=== PATIENT | male | born 1950 | race Caucasian/White ===

== ENCOUNTER 2019-01-03 16:35 | Emergency (ER) | payer MEDICARE ==
--- OUTSIDE RECORDS SUMMARY | 2019-01-03 17:19 | XMS REPORT | Continuity of Care Document ---
:1950 External Reference #:[id number] Author Name Simón Joe MD (transmitted by agent of provider Yolis Greene) Address [address] [place] [address] Care Team Providers Name Role Phone Simón Joe MD - Gastroenterology Care Team Information Paper Cone Grader [phone] [facility] - Physical Care Team Information Paper [employer]one Grader Therapist Problems Active Problems Provider Date Atrial fibrillation Arun Smith M.D., [facility], [facility] Onset: 06/16/2013 Note: as of 02/28/18 has not felt a fib since 2005; Deep venous thrombosis of lower extremity Simón Joe MD Onset: 2005 Note: Dr Ruelas saw him in 2005 - on warfarin ever since History of adenomatous polyp of colon Simón Joe MD Onset: 02/28/2001 Note: TVA in 2000; transverse TA 2014 Anticoagulant therapy Simón Joe MD Onset: 02/28/2006 Note: notices bruising and some oozing from cuts but cuts are rare; Paroxysmal atrial fibrillation Simón Joe MD Onset: 02/28/2018 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 Note: Dr Denys Urena at [facility]; [phone] / fax [phone] Social History Type Date Description Comments Sex Unknown ETOH Use Currently consumes 3 glasses red wine alcohol daily Tobacco Use Start: Unknown Patient has never smoked Recreational Drug Use Denies Drug Use Tobacco Use Start: Unknown Patient is a former Quit cigarettes in End: Unknown smoker 1982 and quit cigars in 2004 Smoking Status Reviewed: 11/22/18 Patient is a former Quit cigarettes in smoker 1982 and quit cigars in 2004 Exercise Type/Frequency Exercises regularly Tennis 3 times a week Allergies, Adverse Reactions, Alerts Active Allergies Reaction Severity Comments Date Tetracycline swelling Severe 05/26/2013 Medications Active Medications SIG Qnty Indications Ordering Date Provider Atenolol 1 by mouth 90tabs Simón Wei 11/22/2018 25mg Tablets every day MD Heath Lipitor 1 by mouth 90tabs Simón Wei 09/19/2018 10mg Tablets every other MD Heath day Hydrochlorothiazide 1 by mouth 90tabs Simón Wei 03/15/2018 25mg Tablets every day MD Heath Coumadin 5mg by mouth Simón Joe, 06/10/2005 5mg 4 days week, 2.5 mg 3 days per week Klor-Con M20 2 by mouth 60tabs Simón Wei 20Meq Tablets ER every day MD Heath Ramipril 1 by mouth 30caps Mary Lopez, 10mg Capsules every day M.DKen Medications Administered in Office Medication SIG Qnty Indications Ordering Provider Date Technetium TC 99M Arun Noé Smith M.D., 08/09/2015 Tetrofosmin, Per Unit Dose FACC, FASNC Up To 40 Millicuries Injection Immunizations Description No Information Available Vital Signs Date Vital Result Comment 11/22/2018 9:12am Height 71 inches 5'11" Weight 188.00 lb Heart Rate 38 /min BP Systolic 122 mmHg manual, right arm BP Diastolic 70 mmHg manual, right arm O2 % BldC Oximetry 96 % BMI (Body Mass Index) 26.2 kg/m2 02/28/2018 9:52am Height 71 inches 5'11" Weight 192.50 lb Heart Rate 40 /min normal for pt BP Systolic 151 mmHg BP Diastolic 79 mmHg Respiratory Rate 18 /min Body Temperature 97.6 F O2 % BldC Oximetry 97 % BMI (Body Mass Index) 26.8 kg/m2 Results Test Date Facility Test Result H/L Range Note Inr/Protim 11/21/2018 [facility] Inr 5.23 Critical high 0.82- 1.[address] [place] [address] [phone] CBC No 11/21/2018 [facility] White Blood 3.5 10^3/uL Normal 3.5-10.[address] [place] [address] [phone] Red Blood Count 4.01 10^6/uL Low 4.18-5.48 Hemoglobin 14.0 g/dL Normal 14.0-18.0 Hematocrit 41 % Low 42-52 Mean Corpuscular Volume 103 fL High 80-94 Mean Corpuscular Hemoglobin 35 pg High 27-31 Mean Corpuscular HGB Conc 34 g/dL Normal 31-36 Red Cell Distribution Width 14 % Normal 10-15 Platelet Count 203 10^3/uL Normal 150-450 Mean Platelet Volume 8.1 fL Normal 7.4-10.4 Comp Metabolic 11/21/2018 [facility] Sodium 138 mmol/L Normal 135-[address] [place] [address] [phone] Potassium 4.2 mmol/L Normal 3.5-5.0 Chloride 104 mmol/L Normal 101-111 Co2 Carbon Dioxide 29 mmol/L Normal 22-32 Anion Gap 5 mmol/L Normal 2-11 Glucose 138 mg/dL High 70-100 Blood Urea Nitrogen 16 mg/dL Normal 6-24 Creatinine 1.05 mg/dL Normal 0.67-1.17 BUN/Creatinine Ratio 15.2 Normal 8-20 Calcium 9.4 mg/dL Normal 8.6-10.3 Total Protein 6.0 g/dL Low 6.4-8.9 Albumin 3.8 g/dL Normal 3.2-5.2 Globulin 2.2 g/dL Normal 2-4 Albumin/Globulin Ratio 1.7 Normal 1-3 Total Bilirubin 0.50 mg/dL Normal 0.2-1.0 Alkaline Phosphatase 68 U/L Normal 34-104 Alt 17 U/L Normal 7-52 Ast 22 U/L Normal 13-39 Egfr Non- 69.8 >60 Egfr 84.5 >60 2 1 Verbal to by [id number] at 1242 on 11/21/18. Results read back accurately. Standard intensity warfarin therapeutic range: 2.0-3.0 High intensity warfarin therapeutic range: 2.5-3.5 2 Because ethnic data is not always readily available, this report includes an eGFR for both -Americans and non- Americans. The National Kidney Disease Education Program (NKDEP) does not endorse the use of the MDRD equation for patients that are not between the ages of 18 and 70, are , have extremes of body size, muscle mass, or nutritional status, or are non- or non-. According to the National Kidney Foundation, irrespective of diagnosis, the stage of the disease is based on the level of kidney function: Stage Description GFR(mL/min/1.73 m(2)) 1 Kidney damage with normal or decreased GFR 90 2 Kidney damage with mild decrease in GFR 60-89 3 Moderate decrease in GFR 30-59 4 Severe decrease in GFR 15-29 5 Kidney failure <15 (or dialysis) Procedures Date Code Description Status 11/17/2014 92044924 Colonoscopy Completed 11/04/2008 [id number] Colonoscopy Completed 09/24/2003 [id number] Colonoscopy Completed 09/04/2000 [id number] Colonoscopy Completed Medical Devices Description No Information Available Encounters Description No Information Available Assessments Date Code Description Provider 11/22/2018 Z85.53 Personal history of malignant neoplasm of Simón Joe MD renal pelvis 11/22/2018 Z86.010 Personal history of colonic polyps Simón Joe MD 11/22/2018 I48.0 Paroxysmal atrial fibrillation Simón Joe MD 11/22/2018 Z79.01 salvage determiner (current) use of anticoagulants Simón Joe MD Plan of Treatment Future Appointment(s):02/27/2019 9:15 am - Simón Joe MD at [facility] [id number]/23/2019 - Simón Joe MDZ85.53 Personal history of malignant neoplasm of renal pelvisNew Xrays:US Renal Complete, Scheduled: Follow up:In one month INR, glucose, A1c February 092018 - INR, CMP, A1c f/u OV mid VumlzhztE59.010 Personal history of colonic polypsFollow up: In one month INR, glucose, A1c February 092018 - INR, CMP, A1c f/u OV mid PporqjdbM85.0 Paroxysmal atrial fibrillationFollow up:In one month INR, glucose, A1c February 092018 - INR, CMP, A1c f/u OV mid PihkvgifO18.01 long-term (current) use of anticoagulantsFollow up:In one month INR, glucose, A1c February 092018 - INR, CMP, A1c f/u OV january Functional Status Description No Information Available Mental Status Description No Information Available Referrals Description No Information Available
--- NOTE | 2019-01-03 17:29 | ED ---
Lower Extremity - HPI Summary HPI Summary: This pt is a 68 y/o male, with hx of DVT, presenting to [facility] c/o left leg pain. Pt reports he thinks he has a clot in his left leg. He notes he is anticoagulation, Coumadin. Denies fever, chest pain, SOB. He notes his INR level was high during the summer and his doctor lowered his dose. As of December 24, 2018 his INR was 3.69 and his dose was lowered again. PMHx: DVT, afib (not since 2004). - History of Current Complaint Chief Complaint: EDExtremityLower Stated Complaint: MIGHT HAVE A CLOT IN MY LOWER LT LEG PER PT Time Seen by Provider: 01/03/19 17:23 Hx Obtained From: Patient Mechanism Of Injury: Other - no trauma Onset of Pain: Days Onset/Duration: Still Present Severity Currently: Moderate Pain Intensity: 5 Pain Scale Used: 0-10 Numeric Timing: Lasting Days Location: Is Discrete @ - left leg Associated Signs And Symptoms: Positive: Negative Aggravating Factor(s): Nothing Able to Bear Weight: Yes Related History: Other - hx of DVT - Allergies/Home Medications Allergies/Adverse Reactions: Allergies Allergy/AdvReac Type Severity Reaction Status Date / Time MS Tetracyclines Allergy Severe Anaphylatic Verified 02/02/12 18:04 [Tetracyclines] Shock PMH/Surg Hx/FS Hx/Imm Hx Endocrine/Hematology History: Denies: Hx Diabetes, Hx Thyroid Disease Cardiovascular History: Reports: Hx Atrial Fibrillation, Hx Deep Vein Thrombosis , Hx Hypertension Respiratory History: Denies: Hx Asthma, Hx Chronic Obstructive Pulmonary Disease (COPD) GI History: Denies: Hx Ulcer - Cancer History Cancer Type, Location and Year: Kidney Ca, partial nephrectomy 2004 - Surgical History Surgery Procedure, Year, and Place: Partial nephreactomy, 2004; tonsillectomy as a child Infectious Disease History: No Infectious Disease History: Denies: Hx Hepatitis, Hx Human Immunodeficiency Virus (HIV), Traveled Outside the [place] in Last 30 Days - Family History Known Family History: Positive: Hypertension - Social History Alcohol Use: Daily Alcohol Amount: 3-4 glasses of red wine Substance Use Type: Reports: None Review of Systems Negative: Fever, Chills Negative: Chest Pain Negative: Shortness Of Breath Gastrointestinal: Negative Musculoskeletal: Other - POSITIVE: left leg pain All Other Systems Reviewed And Are Negative: Yes Physical Exam - Summary Physical Exam Summary: VITAL SIGNS: Reviewed. GENERAL: Patient is a well-developed and nourished male who is lying comfortable in the stretcher. Patient is not in any acute respiratory distress. HEAD AND FACE: No signs of trauma. No ecchymosis, hematomas or skull depressions. No sinus tenderness. EYES: PERRLA, EOMI x 2, No injected conjunctiva, no nystagmus. EARS: Hearing grossly intact. Ear canals and tympanic membranes are within normal limits. MOUTH: Oropharynx within normal limits. NECK: Supple, trachea is midline, no adenopathy, no JVD, no carotid bruit, no c- spine tenderness, neck with full ROM. CHEST: Symmetric, no tenderness at palpation. LUNGS: Clear to auscultation bilaterally. No wheezing or crackles. CVS: Regular rate and rhythm, S1 and S2 present, no murmurs or gallops appreciated. ABDOMEN: Soft, non-tender. No signs of distention. No rebound, no guarding, and no masses palpated. Bowel sounds are normal. EXTREMITIES: Some tenderness in the left calf. NEURO: Alert and oriented x 3. No acute neurological deficits. Speech is normal and follows commands. SKIN: Dry and warm. Triage Information Reviewed: Yes Vital Signs On Initial Exam: Initial Vitals Temp Pulse Resp BP Pulse Ox 98.3 F 48 17 107/86 96 01/03/19 16:50 01/03/19 16:50 01/03/19 16:50 01/03/19 16:50 01/03/19 16:50 Vital Signs Reviewed: Yes Procedures - Sedation Patient Received Moderate/Deep Sedation with Procedure: No Diagnostics - Vital Signs Vital Signs Temp Pulse Resp BP Pulse Ox 01/03/19 16:50 98.3 F 48 17 107/86 96 - Laboratory Lab Statement: Any lab studies that have been ordered have been reviewed, and results considered in the medical decision making process. - Ultrasound No standard instances Ultrasound Interpretation Completed By: Radiologist Summary of Ultrasound Findings: Left lower extremity US IMPRESSION: No DVT of the left lower extremity. Dr. Jacobson has reviewed this report. Lower Extremity Course/Dx - Course Assessment/Plan: This pt is a 68 y/o male, with hx of DVT, presenting to [facility] c /o left leg pain. Pt reports he thinks he has a clot in his left leg. He notes he is anticoagulation, Coumadin. Denies fever, chest pain, SOB. He notes his INR level was high during the summer and his doctor lowered his dose. As of December 24, 2018 his INR was 3.69 and his dose was lowered again. PMHx: DVT, afib (not since 2004). INR: 2.04. U/S LLE: No DVT. Therefore, the patient will be discharged home with follow-up from his primary care physician. I discussed all the findings and test results with the patient. Patient was instructed to return to the emergency room immediately if any of the symptoms return worsens. Plan of care was discussed with the patient and understands and agrees. All questions were answered at patient satisfaction. There were no further complaints or concerns. Lung exam before discharge: CTA B/L. Good air exchange. No wheezing or crackles heard. CVS: S1 and S2 present. No murmurs appreciated. Patient is alert and oriented x 3. Patient is hemodynamically stable. Patient will be discharged home with follow up from his PCP in the next 2-3 days. - Diagnoses Provider Diagnoses: Leg pain, left Discharge ED - Sign-Out/Discharge Documenting (check all that apply): Patient Departure - Discharge home - Discharge Plan Condition: Stable Disposition: HOME Patient Education Materials: Leg Pain (ED) Referrals: Simón Joe MD [Primary Care Provider] - Additional Instructions: Follow up with your primary care provider in 2-3 days. RETURN TO THE ED FOR ANY WORSENING OR NEW SYMPTOMS. - Billing Disposition and Condition Condition: STABLE Disposition: Home - Attestation Statements Document Initiated by Sandra: Yes Documenting Scribe: Lana Simmons Provider For Whom Sandra is Documenting (Include Credential): Stevie Jacobson MD Scribe Attestation: Lana Hobbs, scribed for Stevie Jacobson MD on 01/03/19 at 1859. Scribe Documentation Reviewed: Yes Provider Attestation: The documentation as recorded by the Lana torres accurately reflects the service I personally performed and the decisions made by me, Stevie Jacobson MD Status of Scribjosé miguel Document: Viewed
[2019-01-03 17:35] LABS: INR 2.04 (0.82-1.09)
[2019-01-03 19:17] VITALS: BP 181/80
== END 2019-01-03 19:00 | disposition home or self-care (01) ==
LOC: ED 16:35
DX: M79.605 Pain in left leg (principal); Z86.718 Personal history of other venous thrombosis and embolism; Z79.01 Long term (current) use of anticoagulants; I10 Essential (primary) hypertension; Z88.1 Allergy status to other antibiotic agents
CPT/HCPCS: 36415; 85610; 99282

== ENCOUNTER 2023-09-20 09:11 | Inpatient (IN) ==
[~2023-09-20 09:11] MED LIST: Buffered Lidocaine 1% SYRIN 1 ml INTRADERM ONE; Lactated Ringers 1000 ml BAG 1,000 ML IV SCH; Naloxone 0.4 mg VIAL 0.4 mg/ml 1 ml VIAL IV PRN
[2023-09-20] MEDS ORDERED: ceFAZolin 2 GM in NS PREMIX 2 GM/100 ML BAG IVPB ONE (09:42)
[2023-09-20 10:22] LABS: Rapid COVID-19 Molecular Undetected (Undetected)
[2023-09-20] MEDS ORDERED: Ondansetron 4 mg VIAL 2 MG/ML 2 ml VIAL IV PRN (11:33)
[2023-09-20] MEDS ORDERED: Lidocaine 2% PF 5 ML VIAL ONE (12:03)
[2023-09-20] MEDS ORDERED: Rocuronium 50 mg VIAL 10 mg/ml 5 ml VIAL (50 mg) ONE ×3 (12:04→14:17)
[2023-09-20] MEDS ORDERED: Phenylephrine IV 10 MG/ML 1 ml VIAL ONE (12:05)
[2023-09-20] MEDS ORDERED: Propofol 10 MG/ML 20 ML BTL ONE (12:18)
[2023-09-20] MEDS ORDERED: Bupivacaine 0.25% SDV 30 ML ONE (12:29)
[2023-09-20] MEDS ORDERED: fentaNYL 250 mcg/5 ml 50 MCG/ML 5 ml VIAL (250 MCG) ONE (12:49)
[2023-09-20] MEDS ORDERED: Midazolam 2 mg/2 ml VIAL 1 mg/ml 2 ml VIAL (2 mg) ONE (12:50)
[2023-09-20] MEDS ORDERED: Glycopyrrolate IV 0.2 MG/ML 1 ML VIAL ONE (13:13)
[2023-09-20] MEDS ORDERED: Dexamethasone IV 4 MG/ML VIAL 1 ml VIAL ONE (13:26)
[2023-09-20] MEDS ORDERED: Ondansetron 4 mg VIAL 2 MG/ML 2 ml VIAL ONE (14:36)
[2023-09-20] MEDS ORDERED: fentaNYL 100 mcg/2 ml 50 MCG/ML VIAL ONE (15:22)
[2023-09-20] MEDS: fentaNYL 100 mcg/2 ml 50 MCG/ML VIAL IV PRN (15:24)
[2023-09-20] MEDS: BUPIVACAINE **LIPOSOME/PF 13.3 MG/ML (266MG/ 20ML) VIAL (RESTRICTED) INFIL ONE (17:31)
[2023-09-20] MEDS: Neomycin/Polym/Bacit TOP OINT 15 GM TOPICAL SCH (17:42)
[2023-09-20] MEDS: NS 0.9% 1000 ml BAG 1,000 ML IV SCH (17:42)
[2023-09-20] MEDS: Magnesium Hydroxide LIQ 30 ML UDC PO SCH (21:38)
[2023-09-20 21:53] LABS: ABS Lymphocytes 0.7 10^3/uL (1.0-4.8); ABS Monocytes 0.2 10^3/uL (0.0-1.1); ABS Neutrophils 7.5 10^3/uL (1.5-7.6); Hematocrit 39.9 % (38-53); Hemoglobin 13.4 g/dL (13.2-16.3); Lymphocyte % 8.5 %; Mean Corpuscular Hemoglobin 33.6 pg (27-33); Mean Corpuscular Hgb Conc 33.6 g/dL (31-36); Mean Corpuscular Volume 99.9 fL (80-97); Mean Platelet Volume 7.7 fL (7.5-11.2); Platelet Count 229 10^3/uL (150-450); Red Cell Distribution Width 13.5 % (12-17); White Blood Count 8.4 10^3/uL (3.6-10.2)
[2023-09-20 22:19] LABS: Calcium 8.4 mg/dL (8.6-10.3); Creatinine, Serum 0.97 mg/dL (0.67-1.17); Potassium 4.3 mmol/L (3.5-5.0); eGFR CKD-EPI 81.4 (>60)
[2023-09-21 05:23] VITALS: BP 121/78
== END 2023-09-21 10:40 | disposition home or self-care (01) | DRG 655 ==
LOC: INTOOBSV 09:11 → AA 09:11 → SSU 16:13
PROVIDERS: ADMIT Urology; ATTEND Urology